=== PATIENT | female | born 1960 | race Caucasian/White ===

== ENCOUNTER → 2019-12-22 | Outpatient (CLI) | payer MEDICARE, MEDICAID, SELFPAY ==
--- NOTE | 2019-12-22 10:30 | RAD_ITS ---
STUDY: X-RAY - LEFT SHOULDER REASON FOR EXAM: Female, 59 years old. pain post op TECHNIQUE: 3 view(s) of the shoulder. COMPARISON: None. FINDINGS: Slightly high riding proximal humerus in relation to the glenoid. The humeral head prosthesis with an intramedullary stem is well seated in the bone. Small areas of lucency at the cement-bone interface and near the lateral aspect of the proximal prosthesis is presumably baseline. There are no comparison studies term in any additional resorption has occurred since the initial hardware placement. No fracture is seen. No aggressive process is seen. No suggestion of osteomyelitis. Normal acromioclavicular joint. Normal acromion. The soft tissue structures are unremarkable. Normal visualized pulmonary apex. RAD/Shoulder min 2 Views IMPRESSION: No acute or significant process demonstrated. Electronically Signed: Larry Vickers MD at 20:00 EST , Service support ,
== END | disposition home or self-care (01) ==
LOC: HPRAD 10:30
PROVIDERS: PCP Family Medicine; Referring Provider Orthopaedic Surgery; Visit Provider Orthopaedic Surgery
DX: M25.612 Stiffness of left shoulder, not elsewhere classified (principal)
CPT/HCPCS: 73030